=== PATIENT | female | born 1965 | race Caucasian/White ===

== ENCOUNTER → 2018-07-06 | Outpatient (CLI) | payer BC | LOC: RAD 01:36 | DX: Z12.31 Encounter for screening mammogram for malignant neoplasm of breast (principal) ==

== ENCOUNTER → 2019-08-25 | Outpatient (CLI) | payer BC, OTHER | LOC: RAD 08-23 10:59 | DX: Z12.31 Encounter for screening mammogram for malignant neoplasm of breast (principal) ==

== ENCOUNTER → 2020-09-17 | Outpatient (CLI) | payer BC, OTHER | LOC: BC 09:16 | DX: Z12.31 Encounter for screening mammogram for malignant neoplasm of breast (principal) ==